=== PATIENT | male | born 1950 | race Hispanic/Latino ===

== ENCOUNTER 2019-12-26 13:47 | Inpatient (IN) | payer OTHER, MEDICARE ==
[~2019-12-26] VITALS: Ht 162.6 cm; Wt 52.6 kg
[2019-12-26 15:59] LABS: BASOPHILS % (AUTO) 0.7 % (0.0-5.0); EOSINOPHILS % (AUTO) 1.3 % (0.0-8.0); HEMATOCRIT 40.2 % (42-54); LYMPHOCYTES % (AUTO) 16.5 % (21.0-51.0); MEAN CORPUSCULAR HEMOGLOBIN 32.5 pg (27.0-33.0); MEAN CORPUSCULAR HGB CONC 34.6 g/dL (32.0-36.0); MEAN CORPUSCULAR VOLUME 93.9 fL (79-99); MONOCYTES % (AUTO) 6.1 % (3.0-13.0); NEUTROPHILS % (AUTO) 75.1 % (40.0-77.0); PLATELET COUNT (AUTO) 336 K/uL (130-400); RED BLOOD CELL COUNT(AUTO) 4.28 MIL/uL (4.50-6.20); RED CELL DISTRIBUTION WIDTH 12.5 % (11.0-15.5); WHITE BLOOD COUNT (AUTO) 9.1 K/uL (4.8-10.8)
[2019-12-26 16:05] LABS: CREATININE 0.7 mg/dL (0.5-1.5); POTASSIUM 4.5 mmol/L (3.5-5.1)
[2019-12-26] MEDS ORDERED: ASPIRIN 325 MG TABLET ONE (16:08)
[2019-12-26 16:11] LABS: ALBUMIN 3.8 g/dL (3.5-5.0); BILIRUBIN,TOTAL 0.4 mg/dL (0.2-1.0); INR 0.94 (0.85-1.15); PARTIAL THROMBOPLASTIN TIME 27.7 SEC (26.3-35.5); PROTHROMBIN TIME 10.2 SEC (9.6-11.6); TOTAL PROTEIN, SERUM 7.9 g/dL (6.0-8.3)
[2019-12-26] MEDS ORDERED: HEPARIN SODIUM 5000UNIT/ML 1ML VIAL ONE (17:33)
[2019-12-26] MEDS ORDERED: HEPARIN 25000 UNITS/250 ML D5W 250 ML IV ONE (17:34)
[2019-12-26] MEDS ORDERED: IOHEXOL 350 MG/ML 100ML INFUS..BTL IV ONE (17:54)
[2019-12-26] MEDS ORDERED: ENOXAPARIN SODIUM 60 MG/0.6 ML SQ ONE (18:34)
[2019-12-26] MEDS ORDERED: DEXTROSE 50%-WATER 50 ML DISP.SYRIN IV PRN (20:30)
[2019-12-26] MEDS ORDERED: GLUCAGON 1MG KIT 1 MG ML IM PRN (20:30)
[2019-12-26] MEDS ORDERED: ONDANSETRON HCL 4 MG/2 ML VIAL IVP PRN (20:30)
[2019-12-26] MEDS ORDERED: INSULIN R PO SS1 SQ SCH (21:00)
[2019-12-27] MEDS ORDERED: ONDANSETRON HCL 4 MG/2 ML VIAL ONE (01:11)
[2019-12-27] MEDS ORDERED: MORPHINE SULFATE 2 MG/ML 1ML SYG ONE (01:12)
[2019-12-27] MEDS: ENOXAPARIN SODIUM 60 MG/0.6 ML SQ SCH ×2 (09:00→21:00)
[2019-12-27] MEDS ORDERED: ENOXAPARIN SODIUM 60 MG/0.6 ML SQ ONE (12:17)
[2019-12-27] MEDS ORDERED: IOHEXOL-350 75 ML VIAL IV ONE (13:36)
--- NOTE | 2019-12-27 16:41 | NUR ---
[id number] RECEIVED TELEPHONE CONSENT FROM SIBLING BLESSING KAUFFMAN [phone]. I FAXED IM LETTER TO [phone].
[2019-12-28] MEDS ORDERED: ENOXAPARIN SODIUM 60 MG/0.6 ML SQ ONE ×3 (00:51→21:09)
[2019-12-28] MEDS ORDERED: GLUCAGON 1MG KIT 1 MG ML IM PRN (08:00)
[2019-12-28] MEDS ORDERED: POTASSIUM CHLORIDE 20 MEQ ERTAB PO PRN (08:00)
[2019-12-28] MEDS ORDERED: LIDOCAINE HCL-MPF 1% 2ML VIAL IV PRN (08:00)
[2019-12-28] MEDS ORDERED: DEXTROSE 50%-WATER 50 ML DISP.SYRIN IV PRN (08:00)
[2019-12-28] MEDS ORDERED: POTASSIUM CHLORIDE 20MEQ/100ML 100 ML IV PRN (08:00)
[2019-12-28] MEDS ORDERED: POTASSIUM CHLORIDE 10% ELIXIR 20 MEQ/15 ML UDCUP PO PRN (08:00)
[2019-12-28] MEDS: ENOXAPARIN SODIUM 60 MG/0.6 ML SQ SCH ×2 (09:00→21:56)
[2019-12-28] MEDS: INSULIN HUMULIN R 100 UNIT/ML 3ML SQ SCH ×3 (11:30→20:55)
[2019-12-28 11:36] LABS: HEMATOCRIT 36.1 % (42-54); MEAN CORPUSCULAR HEMOGLOBIN 32.9 pg (27.0-33.0); MEAN CORPUSCULAR HGB CONC 34.1 g/dL (32.0-36.0); MEAN CORPUSCULAR VOLUME 96.5 fL (79-99); RED BLOOD CELL COUNT(AUTO) 3.74 MIL/uL (4.50-6.20); RED CELL DISTRIBUTION WIDTH 12.7 % (11.0-15.5); WHITE BLOOD COUNT (AUTO) 6.3 K/uL (4.8-10.8)
[2019-12-28 11:58] LABS: CREATININE 0.7 mg/dL (0.5-1.5); PHOSPHORUS 4.1 mg/dL (2.5-4.9); POTASSIUM 4.5 mmol/L (3.5-5.1)
--- NOTE | 2019-12-28 12:24 | NUR ---
SPOKE TO BROTHER BLESSING FOR DC PLANNING STATES PATIENT LIVES WITH BROTHER BLESSING, THAT HE HAS BEEN MOSTLY SELF CARE , WITH RECENT DECLINED- WAS USING A CANE AND A WALKER BUT MOBILITY VERY LIMITED THIS WEEK SECOND TO PAIN- STATES GRANDDAUGHTER IS PROVIDER, BUT BLESSING HELPS WITH BATHING AND DRIVING TO APPOINTMENTS ETC. NOTED THAT ONLY THE [place] NUMBER APPEARS ON FACE SHEET; STATES PATIENT NOT LIKELY TO ANSWER PHONE. VERIFIED ADDRESS- INCORRECT ON FACESHEET, WILL FAX TO REGISTRATION FOR CORRECTIONS [facility]-CM TO FOLLOW Addendum: 12/28/19 at 1230 by JAZ CASTANEDA RN Amended: Links added.
[2019-12-28] MEDS ORDERED: MORPHINE SULFATE 2 MG/ML 1ML SYG ONE (22:07)
[2019-12-28] MEDS: MORPHINE SULFATE 2 MG/ML 1ML SYG IVP PRN (22:13)
[2019-12-29] VITALS (21 sets, daily range): BP systolic 104–179; BP diastolic 52–94
--- NOTE | 2019-12-29 04:00 | NUR ---
gave full report on patient verified with house sup patient is on the OR schedule at 8 am pt pre clicppled and bathed , once this am and once yesterday night pt denies sob, denies cp pt 's vital signs stable consent signed by am er nurse shift
--- NOTE | 2019-12-29 04:08 | NUR ---
Received report patient is for bilateral fempop tomorrow,NPO,already prepped ,clipped and bathed as per report.Patient has already signed consent.
[2019-12-29] MEDS: MORPHINE SULFATE 2 MG/ML 1ML SYG IVP PRN (05:11)
[2019-12-29] MEDS: INSULIN HUMULIN R 100 UNIT/ML 3ML SQ SCH ×4 (06:13→20:36)
[2019-12-29] MEDS ORDERED: HEPARIN SODIUM 1000UNIT/ML 10ML VIAL ONE ×2 (07:11→08:51)
[2019-12-29] MEDS ORDERED: SUCCINYLCHOLINE 200MG/10ML SYR ONE (07:11)
[2019-12-29] MEDS ORDERED: LIDOCAINE PF 2% 5ML ABBOJECT ONE (07:11)
--- NOTE | 2019-12-29 07:15 | NUR ---
Patient remained hemodynamically stable and on NPO for fempop procedure today,endorsed care to incoming NOD using SBAR,all questions answered.
[2019-12-29] MEDS ORDERED: PROPOFOL 10 MG/ML 20ML VIAL IV ONE (07:16)
[2019-12-29] MEDS ORDERED: FENTANYL CITRATE PF 50 MCG/1 ML 2ML VIAL ONE ×2 (07:17→09:52)
[2019-12-29] MEDS ORDERED: ROCURONIUM 10MG/1ML SYR 10 MG/ML ML ONE (07:17)
[2019-12-29 07:24] LABS: BASOPHILS % (AUTO) 0.8 % (0.0-5.0); EOSINOPHILS % (AUTO) 4.2 % (0.0-8.0); HEMATOCRIT 36.4 % (42-54); MEAN CORPUSCULAR HEMOGLOBIN 33.2 pg (27.0-33.0); MEAN CORPUSCULAR HGB CONC 34.1 g/dL (32.0-36.0); MEAN CORPUSCULAR VOLUME 97.3 fL (79-99); MONOCYTES % (AUTO) 9.5 % (3.0-13.0); NEUTROPHILS % (AUTO) 59.3 % (40.0-77.0); PLATELET COUNT (AUTO) 259 K/uL (130-400); RED BLOOD CELL COUNT(AUTO) 3.74 MIL/uL (4.50-6.20); RED CELL DISTRIBUTION WIDTH 12.6 % (11.0-15.5); WHITE BLOOD COUNT (AUTO) 6.2 K/uL (4.8-10.8)
[2019-12-29] MEDS ORDERED: CEFAZOLIN SODIUM 1 GM VIAL ONE ×2 (07:26→08:50)
[2019-12-29] MEDS ORDERED: CEFAZOLIN SODIUM 1 GM VIAL IVP PRN (07:30)
[2019-12-29] MEDS: ENOXAPARIN SODIUM 60 MG/0.6 ML SQ SCH (07:31)
[2019-12-29 07:34] LABS: INR 0.98 (0.85-1.15); PARTIAL THROMBOPLASTIN TIME 30.8 SEC (26.3-35.5); PROTHROMBIN TIME 10.6 SEC (9.6-11.6)
[2019-12-29 08:05] LABS: ALBUMIN 3.2 g/dL (3.5-5.0); BILIRUBIN,TOTAL 0.8 mg/dL (0.2-1.0); CREATININE 0.6 mg/dL (0.5-1.5); PHOSPHORUS 4.5 mg/dL (2.5-4.9); POTASSIUM 3.7 mmol/L (3.5-5.1); TOTAL PROTEIN, SERUM 6.7 g/dL (6.0-8.3)
[2019-12-29] MEDS ORDERED: GLYCOPYRROLATE 1 MG/5 ML SYRINGE ONE (08:47)
[2019-12-29] MEDS ORDERED: ESMOLOL HCL 10 MG/ML 10 ML VIAL ONE (09:27)
[2019-12-29] MEDS ORDERED: MORPHINE SULFATE 2 MG/ML 1ML SYG IVP PRN ×2 (11:00)
[2019-12-29] MEDS ORDERED: NEOSTIGMINE 5MG/5ML SYR IV ONE (11:33)
[2019-12-29] MEDS ORDERED: MEPERIDINE-PF 25 MG/ML SYG ONE ×2 (12:20→12:50)
[2019-12-29] MEDS: TRAMADOL HCL 50 MG TABLET PO PRN (16:00)
[2019-12-29] MEDS ORDERED: MORPHINE SULFATE 4 MG/1ML SYG IV PRN (16:00)
[2019-12-29] MEDS: CEFAZOLIN SODIUM 1 GM VIAL IVP SCH (16:28)
--- NOTE | 2019-12-29 19:30 | NUR ---
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 Alert and oriented, denies any discomfort. with dressing on the left upper chest close to the left axillary are as well as dressings in both femoral areas. Pressure dressings dry and intact, site soft to touch, no signs of hematoma. Both missy lower extremities warm to touch, pulses weak but palpable. Pt stated that he's feeling a whole lot better because he can feel his legs more and that before surgery , he tends to fall a lot bec of severe missy leg pain, with the left worse than the right for the last 2 yrs. Able to wiggle toes, denies any numbness and tingling. With a sage catheter in place draining to adequate amount of clear katty yellow urine. Vital signs stable, running normal sinus rhythm in the monitor in the 80's, normotensive. No complaints voiced out, tolerating a clear liquid diet. Will be advanced to a gen heart healthy diet in the am. Denies being a diabetic and refused to have his glucometers checked as per order.
[2019-12-29] MEDS: RIVAROXABAN 2.5 MG TABLET PO SCH (20:32)
[2019-12-30] VITALS (7 sets, daily range): BP systolic 145–179; BP diastolic 64–84
[2019-12-30] MEDS: CEFAZOLIN SODIUM 1 GM VIAL IVP SCH ×2 (01:02→09:27)
[2019-12-30 03:37] LABS: MEAN CORPUSCULAR HEMOGLOBIN 33.1 pg (27.0-33.0); MEAN CORPUSCULAR HGB CONC 33.1 g/dL (32.0-36.0); RED BLOOD CELL COUNT(AUTO) 3.2 MIL/uL (4.50-6.20); RED CELL DISTRIBUTION WIDTH 12.8 % (11.0-15.5)
[2019-12-30] MEDS: INSULIN HUMULIN R 100 UNIT/ML 3ML SQ SCH ×2 (03:40→11:11)
[2019-12-30 03:55] LABS: CREATININE 0.8 mg/dL (0.5-1.5); MAGNESIUM 1.6 mg/dL (1.80-2.40); POTASSIUM 4.4 mmol/L (3.5-5.1)
[2019-12-30 04:03] LABS: HEMOGLOBIN A1C 5.1 % (4.0-6.0)
--- NOTE | 2019-12-30 05:26 | NUR ---
PATIENT UPDATE Comfortable overnight, hasn't required anything for pain. Running NSR in the 70's in the monitor, no ectopies noted. Clarke catheter with adequate urine output. No complaints voiced out. Pending for PT eval and treat accordingly today.
[2019-12-30] MEDS: RIVAROXABAN 2.5 MG TABLET PO SCH ×2 (09:27→20:23)
[2019-12-30] MEDS: ASPIRIN 81 MG EC TAB PO SCH (09:27)
[2019-12-30] MEDS: TRAMADOL HCL 50 MG TABLET PO PRN ×3 (09:28→22:49)
[2019-12-30] MEDS: MAGNESIUM 2GM PREMIX 50ML 50 ML IV SCH (12:32)
[2019-12-30] MEDS: GABAPENTIN 100 MG CAPSULE PO SCH (20:23)
[2019-12-31] VITALS (7 sets, daily range): BP systolic 106–160; BP diastolic 56–76
--- NOTE | 2019-12-31 02:58 | NUR ---
STATUS Pt resting quietly,respirations even and unlabored.Pt was medicated with Tramadol once for c/o severe pain to legs.Voiding via urinal,no problems after sage cath removed yesterday.
[2019-12-31 05:35] LABS: BASOPHILS % (AUTO) 0.3 % (0.0-5.0); EOSINOPHILS % (AUTO) 0.3 % (0.0-8.0); HEMATOCRIT 29.1 % (42-54); LYMPHOCYTES % (AUTO) 6.7 % (21.0-51.0); MEAN CORPUSCULAR HEMOGLOBIN 33.2 pg (27.0-33.0); MEAN CORPUSCULAR HGB CONC 34.7 g/dL (32.0-36.0); MEAN CORPUSCULAR VOLUME 95.7 fL (79-99); MONOCYTES % (AUTO) 9.3 % (3.0-13.0); NEUTROPHILS % (AUTO) 82.7 % (40.0-77.0); PLATELET COUNT (AUTO) 192 K/uL (130-400); RED BLOOD CELL COUNT(AUTO) 3.04 MIL/uL (4.50-6.20); RED CELL DISTRIBUTION WIDTH 12.4 % (11.0-15.5); WHITE BLOOD COUNT (AUTO) 14.3 K/uL (4.8-10.8)
[2019-12-31 05:54] LABS: CREATININE 0.7 mg/dL (0.5-1.5); MAGNESIUM 1.8 mg/dL (1.80-2.40); POTASSIUM 4.9 mmol/L (3.5-5.1)
[2019-12-31] MEDS: MAGNESIUM 2GM PREMIX 50ML 50 ML IV SCH (06:00)
[2019-12-31] MEDS: GABAPENTIN 100 MG CAPSULE PO SCH ×2 (07:56→21:29)
[2019-12-31] MEDS: RIVAROXABAN 2.5 MG TABLET PO SCH ×2 (07:56→21:29)
[2019-12-31] MEDS: ASPIRIN 81 MG EC TAB PO SCH (07:57)
[2019-12-31] MEDS: TRAMADOL HCL 50 MG TABLET PO PRN (07:57)
--- NOTE | 2019-12-31 10:00 | NUR ---
PT UP OUT OF BED WITH PHYSICAL THERAPY. AMBULATES WELL WITH CANE.
--- NOTE | 2019-12-31 10:30 | NUR ---
PT BACK TO BED ON HIS OWN
--- NOTE | 2019-12-31 11:33 | NUR ---
PT HAS BEEN SEEN BY KEVEN LEDESMA [facility]. CLEARED FOR DISCHARGE
--- NOTE | 2019-12-31 13:37 | NUR ---
PT ASITED OUT BED TO CHAIR. USES CANE.MINIMAL ASSISTANCE
[2019-12-31] MEDS ORDERED: METOPROLOL TARTRATE 25 MG TAB ONE (14:15)
[2019-12-31] MEDS: METOPROLOL TARTRATE 25 MG TAB PO SCH ×2 (14:18→21:29)
--- NOTE | 2019-12-31 14:20 | NUR ---
PT HAS HAD SINUS TACHYCARDIA TODAY. RATE 0F 110-140. I LET Karlee LEDESMA KNOW. PERFORMED EKG AND REPORTED IT TO HER. PT HAS NOW BEEN STARTED ON METOPROLOL 12.5MG PO BID. WILL OBSERVE OVERNIGHT. DISCHARGE ON HOLD
--- NOTE | 2019-12-31 14:56 | NUR ---
RD NOTIFICATION Pt tolerating Heart Healthy diet order with no report of GI distress. Fair to Good PO intake, Pt dislikes food as per RN. Snacks or alternative meal option recommended, RN notified and agrees. Elevated WBC (14.3). RD to continue to monitor. Recommend continue Heart healthy diet order Recommend 500mg Vitamin C (BID) RD to continue to monitor. Please notify as additional nutrition concerns arise. Thank you.
--- NOTE | 2019-12-31 19:22 | NUR ---
HAND OFF REPORT GIVEN TO JOSUE SULLIVAN
[2020-01-01 03:04] VITALS: BP 152/61
[2020-01-01 04:21] LABS: HEMATOCRIT 26.7 % (42-54); MEAN CORPUSCULAR HEMOGLOBIN 32.3 pg (27.0-33.0); MEAN CORPUSCULAR HGB CONC 34.5 g/dL (32.0-36.0); MEAN CORPUSCULAR VOLUME 93.7 fL (79-99); PLATELET COUNT (AUTO) 179 K/uL (130-400); RED BLOOD CELL COUNT(AUTO) 2.85 MIL/uL (4.50-6.20); RED CELL DISTRIBUTION WIDTH 12.2 % (11.0-15.5); WHITE BLOOD COUNT (AUTO) 13.8 K/uL (4.8-10.8)
[2020-01-01 04:22] LABS: ALBUMIN 2.1 g/dL (3.5-5.0); BILIRUBIN,TOTAL 1.5 mg/dL (0.2-1.0); CREATININE 0.6 mg/dL (0.5-1.5); MAGNESIUM 1.8 mg/dL (1.80-2.40); POTASSIUM 3.6 mmol/L (3.5-5.1); TOTAL PROTEIN, SERUM 5.6 g/dL (6.0-8.3)
[2020-01-01 04:52] LABS: BAND NEUTROPHILS % (MANUAL) 6 % (0-2); EOSINOPHILS % (MANUAL) 1 % (1-6); LYMPHOCYTES % (MANUAL) 7 % (22-44); MONOCYTES % (MANUAL) 8 % (2-9); SEGMENTED NEUTROPHILS % 78 % (40-70)
[2020-01-01 04:53] LABS: MAN.DIFF COMMENT-IMPRESSION MANUAL DIFFERENTIAL; PLATELET MORPHOLOGY COMMENT ADEQUATE
[2020-01-01] MEDS ORDERED: MAGNESIUM 2GM PREMIX 50ML 50 ML IV SCH (07:00)
[2020-01-01 07:45] VITALS: BP 152/61
--- NOTE | 2020-01-01 08:00 | NUR ---
ASSESSMENT ENCOUNTERED PT ASLEEP BUT AROUSEABLE, A&OX3, C/O LLE PAIN S/P FEM-POP, PT DENIES NAUSEA DIZZINESS, DP/PT PULSES PALPABLE, LLE WARM TO TOUCH, LEFT ANTERIOR CHEST SURGICAL SITE DRY AND INTACT. PT IS AMBULATORY, GAIT SLOW BUT STEADY WITH STAND BY ASSIST. CALL LIGHT WITHIN REACH.
[2020-01-01] MEDS: TRAMADOL HCL 50 MG TABLET PO PRN (09:23)
[2020-01-01] MEDS: RIVAROXABAN 2.5 MG TABLET PO SCH (09:24)
[2020-01-01] MEDS: METOPROLOL TARTRATE 25 MG TAB PO SCH (09:24)
[2020-01-01] MEDS: ASPIRIN 81 MG EC TAB PO SCH (09:24)
[2020-01-01] MEDS: GABAPENTIN 100 MG CAPSULE PO SCH (09:24)
[2020-01-01 11:23] VITALS: BP 124/69
--- NOTE | 2020-01-01 12:00 | NUR ---
DISCHARGE INSTRUCTIONS GIVEN, PIV REMOVED AND INTACT, DISCHARGED HOME TO FAMILY VEHICLE VIA WHEELCHAIR.
[2020-01-01] MEDS ORDERED: RIVA2.5T PO (13:42)
[2020-01-01] MEDS ORDERED: METO25TA6 PO (13:44)
[2020-01-01] MEDS ORDERED: ASPI-1005 PO (13:44)
== END 2020-01-01 14:50 | disposition home or self-care (01) | DRG 253 ==
LOC: EDH 13:47 → OBSVTOIN 18:00 → EDHIP 18:00 → DAHIP 12-29 04:29
PROVIDERS: ADMIT Internal Medicine; ATTEND Internal Medicine
PROC: 04CK0ZZ Extirpation of Matter from Right Femoral Artery, Open Approach (ICD-10-PCS; 2019-12-29)
PROC: 031 Upper Arteries, Bypass (ICD-10-PCS; 2019-12-29)
PROC: 04CY0ZZ Extirpation of Matter from Lower Artery, Open Approach (ICD-10-PCS; 2019-12-29)
PROC: 04CL0ZZ Extirpation of Matter from Left Femoral Artery, Open Approach (ICD-10-PCS; principal; 2019-12-29 08:30)
DX: I73.9 Peripheral vascular disease, unspecified (principal); E87.1 Hypo-osmolality and hyponatremia; I10 Essential (primary) hypertension; E78.5 Hyperlipidemia, unspecified; I70.209 Unspecified atherosclerosis of native arteries of extremities, unspecified extremity; Z20.828 Contact with and (suspected) exposure to other viral communicable diseases; Z79.01 Long term (current) use of anticoagulants
CPT/HCPCS: 36415; 71045; 75635; 80048; 80053; 80061; 82550; 82948; 83036; 83605; 83735; 84100; 84484; 85025; 85027; 85610; 85730; 86850; 86900; 86901; 88304; 88311; 93005; 93306; 93356; 93925; 97039; A4344; G0378; J0330; J0690; J1644; J1650; J2001; J2175; J2270; J2405; J2704; J2710; J3010; J3475; J3490; J7030; J7040; Q9967; U0003

== ENCOUNTER 2020-01-08 11:26 | Inpatient (IN) | payer OTHER, MEDICARE ==
[~2020-01-08] VITALS: Ht 162.6 cm; Wt 53.5 kg
[~2020-01-08 11:26] MED LIST: ASPI-1005 PO; METO25TA6 PO; RIVA2.5T PO
[2020-01-08] MEDS ORDERED: SODIUM CHLORIDE 0.9% 1000ML 1,000 ML IV ONE (12:21)
[2020-01-08 12:24] LABS: BASOPHILS % (AUTO) 0.2 % (0.0-5.0); EOSINOPHILS % (AUTO) 0.2 % (0.0-8.0); HEMATOCRIT 24.9 % (42-54); LYMPHOCYTES % (AUTO) 7.2 % (21.0-51.0); MEAN CORPUSCULAR HEMOGLOBIN 31.4 pg (27.0-33.0); MEAN CORPUSCULAR HGB CONC 34.1 g/dL (32.0-36.0); MEAN CORPUSCULAR VOLUME 91.9 fL (79-99); MONOCYTES % (AUTO) 5.5 % (3.0-13.0); NEUTROPHILS % (AUTO) 86.2 % (40.0-77.0); PLATELET COUNT (AUTO) 149 K/uL (130-400); RED BLOOD CELL COUNT(AUTO) 2.71 MIL/uL (4.50-6.20); RED CELL DISTRIBUTION WIDTH 13.8 % (11.0-15.5)
[2020-01-08 12:35] LABS: INR 1.04 (0.85-1.15); PARTIAL THROMBOPLASTIN TIME 27.8 SEC (26.3-35.5); PROTHROMBIN TIME 11.2 SEC (9.6-11.6)
[2020-01-08 12:36] LABS: CARBON DIOXIDE 30 mmol/L (21-32); CHLORIDE 91 mmol/L (101-111); GLOMERULAR FILTR. RATE CALC 79 mL/min (>60); GLUCOSE,RANDOM 102 mg/dL (70-105); POTASSIUM 3.2 mmol/L (3.5-5.1); SODIUM SERUM 127 mmol/L (136-145); UREA NITROGEN, BLOOD 11 mg/dL (7-18)
[2020-01-08 12:40] LABS: ALANINE AMINOTRANSFERASE 22 U/L (12-78); ALBUMIN 2.1 g/dL (3.5-5.0); ASPARTATE AMINOTRANSFERASE 85 U/L (10-37); BILIRUBIN,TOTAL 0.8 mg/dL (0.2-1.0); TOTAL PROTEIN, SERUM 6.6 g/dL (6.0-8.3)
[2020-01-08 13:01] LABS: LIPASE < 50 U/L (114-286)
[2020-01-08] MEDS ORDERED: ASPIRIN 325 MG TABLET ONE (13:19)
[2020-01-08] MEDS ORDERED: CEFTRIAXONE SODIUM 1 GM ONE (13:19)
[2020-01-08] MEDS ORDERED: SODIUM CHLORIDE 0.9% 100 ML IV ONE (13:20)
[2020-01-08] MEDS ORDERED: LACTULOSE 20 GM/30 ML UDCUP PO PRN (14:30)
[2020-01-08] MEDS ORDERED: ONDANSETRON HCL 4 MG/2 ML VIAL IVP PRN (14:30)
[2020-01-08] MEDS ORDERED: HYDRALAZINE HCL 20 MG/ML VIAL IV PRN (14:30)
[2020-01-08] MEDS ORDERED: DOCUSATE SODIUM 100 MG CAP PO PRN (14:30)
[2020-01-08] MEDS ORDERED: ACETAMINOPHEN 325 MG TAB PO PRN (14:30)
[2020-01-08] MEDS ORDERED: HYDROCODONE/ACETAMINOPHEN 5/325 MG TAB PO PRN (14:30)
[2020-01-08] MEDS ORDERED: IPRATROPIUM/ALBUTEROL SULFATE 3 ML SOLUTION IH PRN (14:30)
[2020-01-08] MEDS ORDERED: VANCOMYCIN 1GM+NS 250ML 250 ML IV SCH (14:30)
[2020-01-08] MEDS ORDERED: ALPRAZOLAM 0.5 MG TABLET PO PRN (14:30)
[2020-01-08] MEDS ORDERED: NOREPINEPHRINE 4MG/NS 250ML 250 ML IV PRN (14:30)
[2020-01-08] MEDS ORDERED: GLUCAGON 1MG KIT 1 MG ML IM PRN (14:45)
[2020-01-08] MEDS ORDERED: POTASSIUM CHLORIDE 20MEQ/100ML 100 ML IV PRN (14:45)
[2020-01-08] MEDS ORDERED: LIDOCAINE HCL-MPF 1% 2ML VIAL IV PRN (14:45)
[2020-01-08] MEDS ORDERED: DEXTROSE 50%-WATER 50 ML DISP.SYRIN IV PRN (14:45)
[2020-01-08] MEDS ORDERED: POTASSIUM CHLORIDE 10% ELIXIR 20 MEQ/15 ML UDCUP PO PRN (14:45)
[2020-01-08] MEDS ORDERED: ENOXAPARIN SODIUM 60 MG/0.6 ML SQ ONE (14:56)
[2020-01-08] MEDS ORDERED: ZOSYN 3.375GM+NS 50ML 50 ML IV ONE (14:56)
[2020-01-08] MEDS ORDERED: VANCOMYCIN 1GM+NS 250ML 250 ML IV ONE (14:56)
[2020-01-08] MEDS ORDERED: NOREPINEPHRINE 4MG/NS 250ML 250 ML IV ONE (15:45)
[2020-01-08 16:53] LABS: APPEARANCE,URINE Clear (CLEAR); BILIRUBIN,URINE Small (NEGATIVE); COLOR,URINE Dark Yellow (YELLOW); GLUCOSE, URINE (UA) Negative (NEGATIVE); KETONES,URINE 15 mg/dL (NEGATIVE); LEUKOCYTE ESTERASE ,URINE Trace (NEGATIVE); NITRATE,URINE Negative (NEGATIVE); OCCULT BLOOD,URINE Negative (NEGATIVE); PROTEIN,URINE Trace mg/dL (NEGATIVE)
[2020-01-08] MEDS ORDERED: ACETAMINOPHEN 325 MG TAB ONE (16:56)
[2020-01-08 17:06] LABS: BACTERIA,URINE Rare /HPF (None Seen); MUCUS,URINE Rare LPF (None Seen); RBC,URINE 0-1 /HPF (0-1); SQUAMOUS EPITHELIAL CELL,UR Few /HPF (0-2)
[2020-01-08 18:36] LABS: TROPONIN I 8.19 ng/mL (0.00-0.06)
[2020-01-08] MEDS ORDERED: COMPOUND IV REFRIGERATED 1 EACH IVSOLN MISC PRN (19:45)
[2020-01-08] MEDS: GENTAMICIN 120 MG IN 100ML NS 100 ML IV SCH (21:00)
[2020-01-08] MEDS: ZOSYN 3.375GM+NS 50ML 50 ML IV SCH (21:00)
[2020-01-08] MEDS: METOPROLOL TARTRATE 25 MG TAB PO SCH (21:00)
[2020-01-08] MEDS ORDERED: METOPROLOL TARTRATE 25 MG TAB ONE (21:53)
[2020-01-09] VITALS (10 sets, daily range): BP systolic 92–117; BP diastolic 43–68
[2020-01-09] MEDS ORDERED: ZOSYN 3.375GM+NS 50ML 50 ML IV ONE ×2 (01:09→07:49)
[2020-01-09] MEDS: VANCOMYCIN 500MG+NS 100ML 100 ML IV SCH ×2 (03:00→14:30)
[2020-01-09] MEDS: ZOSYN 3.375GM+NS 50ML 50 ML IV SCH ×3 (05:00→21:44)
[2020-01-09 05:38] LABS: CREATININE 0.7 mg/dL (0.5-1.5); PHOSPHORUS 3.5 mg/dL (2.5-4.9); POTASSIUM 3.3 mmol/L (3.5-5.1)
[2020-01-09 06:03] LABS: TROPONIN I 17.1 ng/mL (0.00-0.06)
[2020-01-09] MEDS ORDERED: ENOXAPARIN SODIUM 40 MG/0.4 ML SYRINGE SQ ONE (06:25)
[2020-01-09] MEDS ORDERED: ALPRAZOLAM 0.25 MG TABLET PO PRN (09:00)
[2020-01-09] MEDS: ASPIRIN 325 MG TABLET PO SCH (09:00)
[2020-01-09] MEDS: NICOTINE 14 MG/ 24 HR PATCH TD SCH (09:00)
[2020-01-09] MEDS: METOPROLOL TARTRATE 25 MG TAB PO SCH ×2 (09:00→21:43)
[2020-01-09] MEDS: NITROGLYCERIN 1GM/1 INCH PACKET TD SCH ×3 (09:00→21:43)
[2020-01-09] MEDS ORDERED: ENOXAPARIN SODIUM 60 MG/0.6 ML SQ SCH (09:00)
[2020-01-09] MEDS ORDERED: NITROGLYCERIN 1GM/1 INCH PACKET TD ONE (09:15)
[2020-01-09] MEDS ORDERED: METOPROLOL TARTRATE 25 MG TAB ONE (09:15)
[2020-01-09] MEDS ORDERED: ASPIRIN 325 MG TABLET ONE (09:15)
[2020-01-09] MEDS ORDERED: ALPRAZOLAM 0.25 MG TABLET ONE (09:19)
[2020-01-09 11:41] LABS: HEMATOCRIT 22.7 % (42-54); MEAN CORPUSCULAR HEMOGLOBIN 31.5 pg (27.0-33.0); MEAN CORPUSCULAR HGB CONC 34.4 g/dL (32.0-36.0); MEAN CORPUSCULAR VOLUME 91.5 fL (79-99); RED BLOOD CELL COUNT(AUTO) 2.48 MIL/uL (4.50-6.20); RED CELL DISTRIBUTION WIDTH 13.8 % (11.0-15.5); WHITE BLOOD COUNT (AUTO) 9.7 K/uL (4.8-10.8)
[2020-01-09 12:07] LABS: TROPONIN I 15.14 ng/mL (0.00-0.06)
[2020-01-09] MEDS ORDERED: ACET1TAB12 PO (12:18)
[2020-01-09] MEDS: SODIUM CHLORIDE 0.9% 1000ML 1,000 ML IV SCH (13:42)
[2020-01-09] MEDS: MORPHINE SULFATE 2 MG/ML 1ML SYG IVP PRN (14:31)
[2020-01-09] MEDS: GENTAMICIN 120 MG IN 100ML NS 100 ML IV SCH (17:08)
--- NOTE | 2020-01-09 22:20 | NUR ---
Report received from Joaquín SULLIVAN at shift change. Initial assessment completed. Call light and needed items placed readily at hand. Dressing to left groin saturated with serous drainage. Dehisced wound with tamara cleaned with saline. 4X4s and ABD dressing applied.
[2020-01-10] VITALS (23 sets, daily range): BP systolic 91–139; BP diastolic 48–67
[2020-01-10] MEDS: VANCOMYCIN 500MG+NS 100ML 100 ML IV SCH ×2 (03:50→15:18)
[2020-01-10] MEDS: NITROGLYCERIN 1GM/1 INCH PACKET TD SCH ×4 (03:57→20:45)
[2020-01-10] MEDS: ZOSYN 3.375GM+NS 50ML 50 ML IV SCH ×3 (04:53→22:55)
[2020-01-10] MEDS: SODIUM CHLORIDE 0.9% 1000ML 1,000 ML IV SCH (04:55)
--- NOTE | 2020-01-10 07:30 | NUR ---
DR MARTINS AT BEDSIDE-EXAMINES WOUND- INFORMS PT HE WILL NEED SURGERY TO WASHOUT HIS WOUND AND POSSIBLY HAVE TO REMOVE GRAFT. RISK AND BENEFITS EXPLAINED TO PT BY DR MARTINS
[2020-01-10 08:37] LABS: BASOPHILS % (AUTO) 0.3 % (0.0-5.0); EOSINOPHILS % (AUTO) 0.3 % (0.0-8.0); HEMATOCRIT 22.4 % (42-54); LYMPHOCYTES % (AUTO) 13.8 % (21.0-51.0); MEAN CORPUSCULAR HEMOGLOBIN 31.4 pg (27.0-33.0); MEAN CORPUSCULAR VOLUME 94.9 fL (79-99); MONOCYTES % (AUTO) 7.1 % (3.0-13.0); NEUTROPHILS % (AUTO) 77.6 % (40.0-77.0); PLATELET COUNT (AUTO) 86 K/uL (130-400); RED BLOOD CELL COUNT(AUTO) 2.36 MIL/uL (4.50-6.20); RED CELL DISTRIBUTION WIDTH 14.3 % (11.0-15.5); WHITE BLOOD COUNT (AUTO) 9.5 K/uL (4.8-10.8)
[2020-01-10] MEDS ORDERED: CEFAZOLIN SODIUM 1 GM VIAL IVP PRN (09:45)
[2020-01-10] MEDS: NICOTINE 14 MG/ 24 HR PATCH TD SCH (10:33)
[2020-01-10] MEDS: METOPROLOL TARTRATE 25 MG TAB PO SCH ×2 (10:33→20:44)
[2020-01-10] MEDS: ASPIRIN 325 MG TABLET PO SCH (10:33)
[2020-01-10] MEDS: MORPHINE SULFATE 2 MG/ML 1ML SYG IVP PRN ×2 (10:49→16:20)
--- NOTE | 2020-01-10 11:46 | NUR ---
KATHERINE BATH DONE- DRESSING TO LEFT GROIN SATURATED WITH PURULENT DRAINAGE-DRESSING CHANGED PRN. PT HAS SPOKEN TO HIS FAMILY. HE WILL PROCEED WITH SURGERY.
[2020-01-10] MEDS: GENTAMICIN 120 MG IN 100ML NS 100 ML IV SCH (12:36)
--- NOTE | 2020-01-10 15:20 | NUR ---
NEW IV SITE ESTABLISHED TO LEFT FOREARM FOR BLOOD TRANSFUSION. OLD SITE DC'D DUE TO PAIN
[2020-01-10] MEDS ORDERED: SODIUM CHLORIDE 0.9% 500ML 500 ML IV ONE (15:21)
--- NOTE | 2020-01-10 16:20 | NUR ---
TRANSFUSION STOPPED- PT C/O SEVERE HEADACHE/CHILLS/SOB/CHEST PAIN-PLEASE REFER TO BLOOD TRANSFUSION RECORD.
[2020-01-10] MEDS ORDERED: DiphenhydrAMINE HCL 50 MG/ML VIAL ONE (16:34)
--- NOTE | 2020-01-10 16:45 | NUR ---
PT FEELS BETTER - MORE CALM AND RESTFUL. NO MORE SOB/CHEST PAIN.
--- NOTE | 2020-01-10 17:00 | NUR ---
I HAVE NOTIFIED DR MARTINS AND RAHAT SANABRIA FREIGHT INSPECTOR OF PT TRANSFUSION REACTION- INTERVENTIONS CARRIED OUT
[2020-01-10] MEDS ORDERED: DiphenhydrAMINE HCL 50 MG/ML VIAL IV SCH (17:11)
--- NOTE | 2020-01-10 17:15 | NUR ---
SPOKE TO DR GARCIA WHO REVIEWED PT EKG FROM HIS OFFICE... NO NEW EVENT PER DR GARCIA. WILL FOLLOW PT . INFORMED HIM OF ROOM NUMBER
[2020-01-10] MEDS ORDERED: VANCOMYCIN 1GM+NS 250ML 250 ML IV ONE (20:00)
[2020-01-11] VITALS (24 sets, daily range): BP systolic 98–140; BP diastolic 52–81
[2020-01-11] MEDS: POTASSIUM CHLORIDE 20 MEQ ERTAB PO PRN ×2 (00:07→02:24)
--- NOTE | 2020-01-11 00:23 | NUR ---
Patient placed on bedpan for bm. Became tachycardic, tachypneic. O2 sat down to 88. Increase n/c from 2 liter to 4 liters. Call placed to [facility]. Report given to Khanh on pt status, labs. Stated replace this am's potassium as per protocol. O2 sats remain 80's. Placed on 100% non rebreather. Heart rate down from 130 to112, O2 sat up from 88 to 98%. Will continue to monitor patient.
--- NOTE | 2020-01-11 00:40 | NUR ---
Patient states he feels much better. HR down to 109. O2 sat up to 100%. Falling asleep.
[2020-01-11] MEDS: NITROGLYCERIN 1GM/1 INCH PACKET TD SCH ×4 (02:23→21:44)
[2020-01-11] MEDS: ZOSYN 3.375GM+NS 50ML 50 ML IV SCH ×3 (02:42→21:45)
[2020-01-11] MEDS: VANCOMYCIN 1GM+NS 250ML 250 ML IV SCH ×2 (06:40→17:26)
[2020-01-11 07:23] LABS: ALBUMIN 1.8 g/dL (3.5-5.0); BILIRUBIN,DIRECT 0.5 mg/dL (0.0-0.3); BILIRUBIN,TOTAL 1.1 mg/dL (0.2-1.0); CREATININE 1.2 mg/dL (0.5-1.5); MAGNESIUM 2.5 mg/dL (1.80-2.40); PHOSPHORUS 5.2 mg/dL (2.5-4.9); TOTAL PROTEIN, SERUM 5.9 g/dL (6.0-8.3)
[2020-01-11] MEDS: FUROSEMIDE 10 MG/ML 2ML VIAL IV SCH ×2 (07:45→21:43)
[2020-01-11] MEDS ORDERED: FUROSEMIDE 10 MG/ML 4ML VIAL IV SCH (08:30)
[2020-01-11] MEDS: GENTAMICIN 120 MG IN 100ML NS 100 ML IV SCH (09:01)
[2020-01-11] MEDS: METOPROLOL TARTRATE 25 MG TAB PO SCH ×2 (09:03→21:44)
[2020-01-11] MEDS: ASPIRIN 325 MG TABLET PO SCH (09:03)
[2020-01-11] MEDS: NICOTINE 14 MG/ 24 HR PATCH TD SCH (09:29)
--- NOTE | 2020-01-11 16:07 | NUR ---
CARLTON NOTE/IA UNABLE TO MEET WITH PATIENT IN ROOM. SIBLING, BLESSING CORTEZ, CALLED. PER SIBLING, PATIENT LIVES WITH SPOUSE, IS INDEPENDENT WITH ADLS, HAS PROVIDER DAILY (GRANDDAUGHTER), HAS USE OF CANE AND WALKER, SIBLINGS DRIVES HIM TO APPOINTMENTS AND FEELS SAFE FOR PATIENT TO RETURN HOME ONCE DISCHARGED. CORRECT PHYSICAL ADDRESS FOLLOWS: [address] [facility]. [id number]. Addendum: 01/11/20 at 1610 by LITO NAYLOR RN CM Amended: Links added.
[2020-01-11] MEDS ORDERED: METOPROLOL TARTRATE 1 MG/ML 5ML VIAL IV ONE (22:23)
[2020-01-11] MEDS: METOPROLOL TARTRATE 1 MG/ML 5ML VIAL IV SCH (22:30)
[2020-01-12] VITALS (29 sets, daily range): BP systolic 90–128; BP diastolic 51–75
[2020-01-12] MEDS ORDERED: PHARMACY COMMUNICATION MISC SCH (00:15)
[2020-01-12] MEDS: NITROGLYCERIN 1GM/1 INCH PACKET TD SCH ×4 (03:09→22:23)
[2020-01-12] MEDS: GENTAMICIN 120 MG IN 100ML NS 100 ML IV SCH (04:53)
[2020-01-12 05:10] LABS: BASOPHILS % (AUTO) 0.1 % (0.0-5.0); LYMPHOCYTES % (AUTO) 5.6 % (21.0-51.0); MEAN CORPUSCULAR HEMOGLOBIN 31.6 pg (27.0-33.0); MEAN CORPUSCULAR HGB CONC 33.7 g/dL (32.0-36.0); MEAN CORPUSCULAR VOLUME 93.8 fL (79-99); MONOCYTES % (AUTO) 5.4 % (3.0-13.0); NEUTROPHILS % (AUTO) 87.7 % (40.0-77.0); NUCLEATED RED BLOOD CELLS 0.2 % (0.0-0.19); PLATELET COUNT (AUTO) 90 K/uL (130-400); RED BLOOD CELL COUNT(AUTO) 2.88 MIL/uL (4.50-6.20); RED CELL DISTRIBUTION WIDTH 15.8 % (11.0-15.5); WHITE BLOOD COUNT (AUTO) 14.6 K/uL (4.8-10.8)
[2020-01-12 05:46] LABS: ALBUMIN 1.7 g/dL (3.5-5.0); BILIRUBIN,TOTAL 1.3 mg/dL (0.2-1.0); GENTAMICIN,TROUGH 1.6 mcg/mL (0.0-2.0); MAGNESIUM 2.2 mg/dL (1.80-2.40); PHOSPHORUS 5.3 mg/dL (2.5-4.9); POTASSIUM 4.1 mmol/L (3.5-5.1); TOTAL PROTEIN, SERUM 6.1 g/dL (6.0-8.3)
[2020-01-12] MEDS: VANCOMYCIN 1GM+NS 250ML 250 ML IV SCH (06:00)
[2020-01-12 06:13] LABS: CRP QUANTITATIVE 312.7 mg/L (0.00-9.0)
[2020-01-12 06:45] LABS: ABG BASE EXCESS -2.2 mmol/L (-2.0-3.0); ABG HCO3 18.2 mmol/L (21.0-28.0); ABG OXYGEN SATURATION 96.1 % (95.0-99.0); ABG PCO2 22 mmHg (35-48)
[2020-01-12] MEDS ORDERED: VANCOMYCIN 1GM+NS 250ML 250 ML IV SCH (07:43)
[2020-01-12] MEDS ORDERED: HEPARIN SODIUM 5000UNIT/ML 1ML VIAL SQ SCH (09:00)
[2020-01-12] MEDS: ASPIRIN 325 MG TABLET PO SCH (09:34)
[2020-01-12] MEDS: ZOSYN 3.375GM+NS 50ML 50 ML IV SCH ×2 (09:34→17:07)
[2020-01-12] MEDS: METOPROLOL TARTRATE 50 MG TAB PO SCH ×2 (09:34→22:22)
[2020-01-12] MEDS: FUROSEMIDE 10 MG/ML 2ML VIAL IV SCH ×2 (09:35→20:27)
[2020-01-12] MEDS: NICOTINE 14 MG/ 24 HR PATCH TD SCH (09:35)
[2020-01-12] MEDS: CLINDAMYCIN 900 MG/D5% WATER 50 ML IV SCH ×2 (12:30→17:07)
[2020-01-12] MEDS: CEFEPIME HCL 2 GM VIAL IVP SCH (12:31)
[2020-01-12] MEDS: ENOXAPARIN SODIUM 60 MG/0.6 ML SQ SCH (12:31)
--- NOTE | 2020-01-12 14:53 | NUR ---
ATTEMPTED TO PLACE TORRES CATHETER. PATIENT REFUSED.
[2020-01-12] MEDS: METOPROLOL TARTRATE 1 MG/ML 5ML VIAL IV SCH (19:24)
--- NOTE | 2020-01-12 20:15 | NUR ---
ASSESSMENT: PT RESTING IN BED, FOLLOWS SIMPLE COMMANDS, COOPERATIVE AT PRESENT, PERRLA. ASSESSMENT COMPLETED, SEE FLOW SHEET.
--- NOTE | 2020-01-12 21:15 | NUR ---
REPORT REPORT GIVEN TO CLARITZA SULLIVAN, PT PENDING TRANSFER TO ROOM 210.
[2020-01-12] MEDS: ATORVASTATIN CALCIUM 40 MG TABLET PO SCH (22:22)
--- NOTE | 2020-01-12 22:45 | NUR ---
TRANSFER PT TRANSFERRED VIA BED TO ROOM 210, CARE ENDORSED.
[2020-01-12] MEDS: SODIUM CHLORIDE 0.9% 1000ML 1,000 ML IV SCH (23:55)
[2020-01-13] VITALS (56 sets, daily range): BP systolic 79–140; BP diastolic 35–69
[2020-01-13] MEDS: CEFEPIME HCL 2 GM VIAL IVP SCH (00:05)
[2020-01-13] MEDS: CLINDAMYCIN 900 MG/D5% WATER 50 ML IV SCH ×4 (00:05→16:09)
[2020-01-13] MEDS: ZOSYN 3.375GM+NS 50ML 50 ML IV SCH ×4 (00:28→10:28)
[2020-01-13] MEDS: NITROGLYCERIN 1GM/1 INCH PACKET TD SCH ×4 (03:00→10:21)
[2020-01-13 05:21] LABS: ABG BASE EXCESS -1.7 mmol/L (-2.0-3.0); ABG HCO3 18.7 mmol/L (21.0-28.0); ABG OXYGEN SATURATION 97.2 % (95.0-99.0); ABG PCO2 23 mmHg (35-48)
[2020-01-13 05:37] LABS: INR 1.14 (0.85-1.15); PARTIAL THROMBOPLASTIN TIME 24.2 SEC (26.3-35.5); PROTHROMBIN TIME 12.3 SEC (9.6-11.6)
[2020-01-13 05:50] LABS: BASOPHILS % (AUTO) 0.1 % (0.0-5.0); HEMATOCRIT 23.4 % (42-54); LYMPHOCYTES % (AUTO) 9.5 % (21.0-51.0); MEAN CORPUSCULAR HEMOGLOBIN 30.8 pg (27.0-33.0); MEAN CORPUSCULAR HGB CONC 33.3 g/dL (32.0-36.0); MEAN CORPUSCULAR VOLUME 92.5 fL (79-99); MONOCYTES % (AUTO) 4.6 % (3.0-13.0); NEUTROPHILS % (AUTO) 84.8 % (40.0-77.0); NUCLEATED RED BLOOD CELLS 0.3 % (0.0-0.19); PLATELET COUNT (AUTO) 72 K/uL (130-400); RED BLOOD CELL COUNT(AUTO) 2.53 MIL/uL (4.50-6.20); WHITE BLOOD COUNT (AUTO) 11.1 K/uL (4.8-10.8)
--- NOTE | 2020-01-13 06:35 | NUR ---
BP CALLED CC EP SPECIALIST AND NOTIFIED OF DECREASED BLOOD PRESSURE AND INITIATION OF LEVOPHED PROFILED. INFORMED OF INCREASE IN DUSKINESS AFTER NOREPINEPHRINE INITIATED. ORDERS TO STOP VASOPRESSOR AND GIVE 1L BOLUS. PATIENT AAOX3 WITH NO SIGNS OR SYMPTOMS OF DISTRESS
[2020-01-13 06:38] LABS: ALBUMIN 1.5 g/dL (3.5-5.0); BILIRUBIN,TOTAL 1.2 mg/dL (0.2-1.0); CREATININE 2.4 mg/dL (0.5-1.5); MAGNESIUM 2.3 mg/dL (1.80-2.40); PHOSPHORUS 6.1 mg/dL (2.5-4.9); POTASSIUM 3.2 mmol/L (3.5-5.1); TOTAL PROTEIN, SERUM 5.5 g/dL (6.0-8.3)
[2020-01-13 07:24] LABS: TROPONIN I 38.92 ng/mL (0.00-0.06)
[2020-01-13] MEDS ORDERED: CEFEPIME HCL 1 GM VIAL IVP SCH ×2 (07:45→20:00)
[2020-01-13] MEDS ORDERED: SODIUM CHLORIDE 0.9% 1000ML 1,000 ML IV ONE (08:45)
[2020-01-13] MEDS: METOPROLOL TARTRATE 50 MG TAB PO SCH ×2 (09:00→21:05)
[2020-01-13] MEDS ORDERED: GENTAMICIN 80 MG/NS 100 ML PB 100 ML IV SCH (09:00)
--- NOTE | 2020-01-13 09:16 | NUR ---
MILD MD NOTIFICATION MADE AWARE OF ELEVATED TROPONIN 38.92 AND CARDIAC PANEL. STATED CONTINUE TO KEEP AN EYE ON PATIENT PER SAUMYA FREEDMAN. REPEAT CK IN AM AND REPORT TO SAUMYA. WILL CONTINUE TO MONITOR PATIENT. CURRENTLY NO C/O CHEST PAIN. RESTING COMFORTABLY IN BED.
[2020-01-13] MEDS: FUROSEMIDE 10 MG/ML 2ML VIAL IV SCH (09:19)
[2020-01-13] MEDS ORDERED: POTASSIUM CHLORIDE 10MEQ/100ML 100 ML IV PRN (09:30)
[2020-01-13] MEDS ORDERED: LIDOCAINE HCL-MPF 1% 2ML VIAL IV PRN (09:30)
--- NOTE | 2020-01-13 10:00 | NUR ---
ELIEZER FREEDMAN ROUND UPDATED ON PT STATUS, ASSESSMENT AND PLAN OF CARE. DECREASE LOPRESSOR 25MG PO. UNABLE TO OBTAIN NGT DUE TO PT REFUSAL. PENDING CARDIOLOGY CLEARANCE FOR WASHOUT OF LEFT GROIN.
--- NOTE | 2020-01-13 10:18 | NUR ---
MILAN MURCIA MD UPDATED ON PT STATUS, ASSESSMENT AND PLAN OF CARE. ADDRESSED MEDS - AVOID NEPHROTOXIC MEDS. MD WILL PLACE ORDERS.
[2020-01-13] MEDS: VANCOMYCIN 1GM+NS 250ML 250 ML IV SCH (10:22)
[2020-01-13] MEDS: ASPIRIN 325 MG TABLET PO SCH (10:26)
[2020-01-13] MEDS: ENOXAPARIN SODIUM 60 MG/0.6 ML SQ SCH (10:27)
[2020-01-13] MEDS: NICOTINE 14 MG/ 24 HR PATCH TD SCH (11:14)
[2020-01-13] MEDS ORDERED: MILRINONE-D5W 20 MG/100 ML 100 ML IV SCH (12:15)
[2020-01-13] MEDS ORDERED: NITROGLYCERIN 1GM/1 INCH PACKET TD SCH (12:15)
[2020-01-13] MEDS ORDERED: MIDODRINE HCL 5 MG TABLET PO SCH (14:00)
[2020-01-13] MEDS ORDERED: MORPHINE SULFATE 2 MG/ML 1ML SYG IVP PRN (14:30)
[2020-01-13] MEDS ORDERED: FUROSEMIDE 10 MG/ML 4ML VIAL IV SCH (19:45)
[2020-01-13] MEDS: ATORVASTATIN CALCIUM 40 MG TABLET PO SCH (21:05)
[2020-01-14] VITALS (13 sets, daily range): BP systolic 77–167; BP diastolic 33–93
[2020-01-14] MEDS: METOPROLOL TARTRATE 1 MG/ML 5ML VIAL IV SCH (01:07)
[2020-01-14] MEDS: CLINDAMYCIN 900 MG/D5% WATER 50 ML IV SCH (01:08)
[2020-01-14] MEDS ORDERED: DEXMEDETOMIDINE HCL 400 MCG in SODIUM CHLORIDE 0.9% 100 ML IV SCH (01:45)
[2020-01-14 04:39] LABS: ABG BASE EXCESS -16.1 mmol/L (-2.0-3.0); ABG HCO3 6.7 mmol/L (21.0-28.0); ABG OXYGEN SATURATION 99.3 % (95.0-99.0); ABG PCO2 < 15 mmHg (35-48)
[2020-01-14 05:26] LABS: MEAN CORPUSCULAR HEMOGLOBIN 30.7 pg (27.0-33.0); MEAN CORPUSCULAR HGB CONC 31.8 g/dL (32.0-36.0); MEAN CORPUSCULAR VOLUME 96.5 fL (79-99); NUCLEATED RED BLOOD CELLS 1.1 % (0.0-0.19); PLATELET COUNT (AUTO) 57 K/uL (130-400); RED BLOOD CELL COUNT(AUTO) 2.28 MIL/uL (4.50-6.20); RED CELL DISTRIBUTION WIDTH 16.5 % (11.0-15.5); WHITE BLOOD COUNT (AUTO) 12.2 K/uL (4.8-10.8)
[2020-01-14 05:31] LABS: INR 1.25 (0.85-1.15); PARTIAL THROMBOPLASTIN TIME 29.4 SEC (26.3-35.5); PROTHROMBIN TIME 13.4 SEC (9.6-11.6)
[2020-01-14] MEDS ORDERED: SODIUM BICARB 50MEQ 50ML VIAL ONE ×2 (05:48→06:15)
[2020-01-14] MEDS ORDERED: DEXTROSE 5%-WATER 1,000 ML IV ONE (05:50)
--- NOTE | 2020-01-14 06:00 | NUR ---
CARDIAC ARREST/PEA PT WENT BRADYCARDIAC, PRECEDEX STOPPED. CODE BLUE CALLED. MECHATRONICS TECHNICIAN NOTIFIED OF ALL CRITICAL VALUES. LEVO GTTS, HCO3 GTTS INFUSING. 1.5L OF FLUID GIVEN, ED MD DR. ZHENG AT BEDSIDE FOR INTUBATION. ROSC ACHIEVED AT 0540 SEE CODE SHEET FOR DOCUMENTATION. FAMILY NOTIFIED AND WISH FOR PT TO BE FULL CODE. CODE BLUE X2 DR ZHENG RETURNED HCO3 REMAINS, BLOOD ORDERED, LEVO, EPI, TRANSCUTANEOUS PACING AT 80MA AND 80PPM, UNABLE TO GET TEMP ON PT AND TEMP DEVICE APPLIED. AGAIN, SEE CODE SHEET FOR DOCUMENTATION.
[2020-01-14] MEDS ORDERED: SODIUM BICARB 8.4% 50ML SYRING 100 MEQ in DEXTROSE 5%-WATER 1,050 ML IV SCH (06:15)
[2020-01-14 06:17] LABS: ALBUMIN 1.6 g/dL (3.5-5.0); BILIRUBIN,TOTAL 0.8 mg/dL (0.2-1.0); CREATININE 3.3 mg/dL (0.5-1.5); MAGNESIUM 2.9 mg/dL (1.80-2.40); PHOSPHORUS 8.4 mg/dL (2.5-4.9); POTASSIUM 4.2 mmol/L (3.5-5.1); TOTAL PROTEIN, SERUM 5.9 g/dL (6.0-8.3)
[2020-01-14 06:21] LABS: TROPONIN I 31.9 ng/mL (0.00-0.06)
[2020-01-14 06:39] LABS: CRP QUANTITATIVE 197.5 mg/L (0.00-9.0)
[2020-01-14] MEDS ORDERED: NITROGLYCERIN 50 MG/D5% WATER 250 BOT IV SCH (06:48)
[2020-01-14] MEDS ORDERED: EPINEPHRINE 1 MG/ML AMPULE ONE ×2 (06:48→10:02)
[2020-01-14] MEDS ORDERED: SODIUM CHLORIDE 0.9% 250 ML IV ONE (06:49)
[2020-01-14] MEDS ORDERED: SODIUM CHLORIDE 0.9% 500ML 500 ML IV ONE (07:06)
[2020-01-14 07:17] LABS: TROPONIN I 28.88 ng/mL (0.00-0.06)
[2020-01-14] MEDS ORDERED: EPINEPHRINE 2 MG in SODIUM CHLORIDE 0.9% 250 ML IV SCH (08:30)
--- NOTE | 2020-01-14 08:30 | NUR ---
CODE STATUS ELISA FREEDMAN SPOKE WITH BROTHER BLESSING REGARDING PT CRITICAL CONDITION AND PROGNOSIS. ASKED TO SPEAK WITH SON FOR CODE STATUS. OBTAINED DNR STATUS WITH SON JONG VAZQUEZ AT 0813 WITH 2ND RN WITNESS. SON SAID 'YES LET HIM GO MA'AM'. HOWEVER DNR SHORTLY REVOKED D/T INFORMATION FROM CM THAT THERE ARE 3 OTHER CHILDREN THAT NEED TO BE CONSULTED AND CONSENTED. PT WILL BE FULL CODE AT THIS TIME.
--- NOTE | 2020-01-14 10:15 | NUR ---
DNR Received call from nurse asking for assistance in obtaining DNR. CM spoke to Gregorio Juarez ph: [phone]. Per Gregorio, Gregorio is patient's brother and not MPOA. States patient's is and patient has 4 children. CM spoke to Socorro Juarez Jr (Son) ph: [phone] who states wants patient to be a Do Not Resuscitate and let patient go naturally. Son denies patient having a MPOA. Informed that CM must obtain majority of siblings to agree to DNR before patient can legally be a DNR. Verbalized understanding. States will have family call. CM received call from son in law ph: [phone] who is the to Guadalupe Juarez (daughter to patient). Informed needing to speak to Guadalupe. Guadalupe Juarez (daughter- ph# [phone]) spoke to Wire Welder Anastacia Humphries and CM and provided telephone consent for DNR. CM spoke to Kami who is daughter to Kim Juarez (daughter to patient) and states Kim does not have a cell phone, but can be reached at [phone]. CM spoke to Kim (home land line # [phone]) who provided telephone consent for DNR. All calls witnessed with Anastacia Humphries Wire Welder. DNR form completed and placed in chart. Gillian Humphries spoke to BALTAZAR Henson for DNR order.
--- NOTE | 2020-01-14 10:15 | NUR ---
CODE TIFFANIE MORENO CALLED AT 955 FOR PEA. SEE CODE BLUE SHEET. ALL FAMILY MEMBERS HAVE BEEN CONTACTED AND MADE AWARE BY 1015, PT IS NOW DNR STATUS.
--- NOTE | 2020-01-14 12:00 | NUR ---
EXPIRATION AT 1120 PT ON THE VENTILATOR AT THIS TIME. OLY FREEDMAN PRONOUNCED PT AT THIS TIME. FAMILY MADE AWARE. MAGDA CALLED AND PENDING CALLBACK.
--- NOTE | 2020-01-14 14:35 | NUR ---
MARTIN PT SENT TO MARTIN AT THIS TIME. PT BELONGINGS SENT WITH SECURITY. DAUGHTER DRE MADE AWARE TO PICKUP.
[2020-01-15] MEDS ORDERED: SODIUM BICARB 8.4% 50ML SYRING 150 MEQ in DEXTROSE 5%-WATER 1,000 ML IV SCH (06:15)
== END 2020-01-14 11:20 | disposition expired ==
LOC: EDH 11:26 → EDHIP 16:01 → DAHIP 01-09 11:39 → 2BH 01-12 23:24
PROVIDERS: ADMIT Internal Medicine; ATTEND Internal Medicine
PROC: 30233N1 Transfusion of Nonautologous Red Blood Cells into Peripheral Vein, Percutaneous Approach (ICD-10-PCS; 2020-01-10)
PROC: 5A09457 Assistance with Respiratory Ventilation, 24-96 Consecutive Hours, Continuous Positive Airway Pressure (ICD-10-PCS; principal; 2020-01-11)
PROC: 0BH17EZ Insertion of Endotracheal Airway into Trachea, Via Natural or Artificial Opening (ICD-10-PCS; 2020-01-14)
PROC: 5A1935Z Respiratory Ventilation, Less than 24 Consecutive Hours (ICD-10-PCS; 2020-01-14)
PROC: 5A12012 Performance of Cardiac Output, Single, Manual (ICD-10-PCS; 2020-01-14)
DX: T82.7XXA Infection and inflammatory reaction due to other cardiac and vascular devices, implants and grafts, initial encounter (principal); A41.9 Sepsis, unspecified organism; I21.3 ST elevation (STEMI) myocardial infarction of unspecified site; R65.21 Severe sepsis with septic shock; I50.23 Acute on chronic systolic (congestive) heart failure; J96.01 Acute respiratory failure with hypoxia; J12.9 Viral pneumonia, unspecified; N17.9 Acute kidney failure, unspecified; T81.30XA Disruption of wound, unspecified, initial encounter; E87.1 Hypo-osmolality and hyponatremia; L03.314 Cellulitis of groin; I13.0 Hypertensive heart and chronic kidney disease with heart failure and stage 1 through stage 4 chronic kidney disease, or unspecified chronic kidney disease; E87.2 Acidosis; R57.0 Cardiogenic shock; Z66 Do not resuscitate; D64.9 Anemia, unspecified; I73.9 Peripheral vascular disease, unspecified; N18.9 Chronic kidney disease, unspecified; E11.22 Type 2 diabetes mellitus with diabetic chronic kidney disease; E11.51 Type 2 diabetes mellitus with diabetic peripheral angiopathy without gangrene; F17.200 Nicotine dependence, unspecified, uncomplicated; E78.00 Pure hypercholesterolemia, unspecified; Z20.828 Contact with and (suspected) exposure to other viral communicable diseases; Z53.20 Procedure and treatment not carried out because of patient's decision for unspecified reasons; Y84.8 Other medical procedures as the cause of abnormal reaction of the patient, or of later complication, without mention of misadventure at the time of the procedure; I25.10 Atherosclerotic heart disease of native coronary artery without angina pectoris; I34.0 Nonrheumatic mitral (valve) insufficiency; I25.2 Old myocardial infarction; Z95.1 Presence of aortocoronary bypass graft; Z79.899 Other long term (current) drug therapy; Z79.82 Long term (current) use of aspirin; Y92.89 Other specified places as the place of occurrence of the external cause; T45.8X5A Adverse effect of other primarily systemic and hematological agents, initial encounter
CPT/HCPCS: 31500; 36415; 36430; 36600; 71045; 80048; 80053; 80076; 80170; 80202; 81001; 82550; 82728; 82803; 82948; 83540; 83550; 83605; 83615; 83690; 83735; 83874; 83880; 84100; 84145; 84484; 85025; 85027; 85378; 85610; 85730; 86078; 86140; 86850; 86900; 86901; 86922; 87040; 87070; 87076; 87077; 87186; 87426; 92950; 93005; 93306; 94002; 94660; 94664; G0378; J0171; J0692; J0696; J1200; J1580; J1644; J1650; J1940; J2543; J3370; J3480; J3490; J7030; J7040; J7050; J7070; P9016; U0003